=== PATIENT | female | born 1955 | race Caucasian/White ===

== ENCOUNTER 2017-04-14 07:52 | Inpatient (IN) | payer OTHER ==
[~2017-04-14] VITALS: Ht 172.7 cm; Wt 95.2 kg
[~2017-04-14 07:52] MED LIST: CLINDAMYCIN300 M1 PO; HCTZ/LISINOPRIL1 TAB PO; LAC PO; LEVAQUIN750 MG PO; PREDNISONE10 MG PO; PULMICORT0.5 MG/2 M IH; SYNTHROID0.137 MG PO; TES100 PO; XOP1.25 IH; ZOC10 PO
[2017-04-14 09:00] LABS: BASOPHIL % 0.3 % (0-2); PLATELET COUNT 242 x10^3mcL (130-400)
[2017-04-14 09:06] LABS: CALCIUM 8.2 mg/dL (8.5-10.1); CARBON DIOXIDE 23.8 mmol/L (21-32); CHLORIDE SERUM 107 mmol/L (98-107); CREATININE SERUM 0.9 mg/dL (0.6-1.0); GFR1 > 60 mL/min; GLUCOSE SERUM 109 mg/dL (74-106); POTASSIUM SERUM 3.8 mmol/L (3.5-5.1); SODIUM SERUM 141 mmol/L (136-145)
[2017-04-14 09:11] LABS: ALKALINE PHOSPHATASE 105 U/L (46-116); ALT/SGPT 49 U/L (14-59); AST/SGOT 56 U/L (15-37); BILIRUBIN TOTAL 0.34 mg/dL (0.20-1.00); TOTAL PROTEIN, SERUM 6.9 g/dL (6.4-8.2)
[2017-04-14 09:12] LABS: ALBUMIN 3.2 g/dL (3.4-5.0)
[2017-04-14 10:44] LABS: microscopic required? YES; urine erythrocyte TRACE (NEGATIVE)
[2017-04-14] MEDS ORDERED: SYNTHROID0.15 MG PO (10:49)
[2017-04-14] MEDS ORDERED: AVAPRO75 MG PO (10:50)
[2017-04-14 11:20] LABS: MAGNESIUM 1.8 mg/dL (1.8-2.4); PHOSPHOROUS 2.3 mg/dL (2.5-4.9)
[2017-04-14 11:23] LABS: CHOLESTEROL/HDL RATIO 3.5
[2017-04-14 11:28] LABS: FREE T4 0.91 ng/dL (0.76-1.46); FREE THYROXINE INDEX 2.2 ug/dL (1.4-4.5); T4(THYROXINE) 6.8 ug/dL (4.7-13.3)
[2017-04-14 11:29] LABS: T3 TOTAL 0.87 ng/mL
[2017-04-14 11:30] VITALS: BP 107/57
[2017-04-14 12:51] VITALS: BP 107/57
[2017-04-14 13:35] VITALS: BP 107/57
[2017-04-14 14:18] VITALS: BP 104/71
[2017-04-14 17:56] VITALS: BP 117/87
[2017-04-14 21:56] VITALS: BP 110/74
[2017-04-15 05:22] VITALS: BP 133/81
[2017-04-15 06:20] LABS: BASOPHIL % 0.4 % (0-2); PLATELET COUNT 193 x10^3mcL (130-400)
[2017-04-15 06:27] LABS: CALCIUM 7.6 mg/dL (8.5-10.1); CARBON DIOXIDE 25.5 mmol/L (21-32); CHLORIDE SERUM 110 mmol/L (98-107); CREATININE SERUM 0.8 mg/dL (0.6-1.0); GFR1 > 60 mL/min; GLUCOSE SERUM 93 mg/dL (74-106); PHOSPHOROUS 2.8 mg/dL (2.5-4.9); POTASSIUM SERUM 3.9 mmol/L (3.5-5.1); SODIUM SERUM 142 mmol/L (136-145)
[2017-04-15 06:43] LABS: RED CELL DISTRIBUTION WIDTH 16.3 % (11.5-14.5)
[2017-04-15 08:30] VITALS: BP 130/80
[2017-04-15 13:00] VITALS: BP 119/71
[2017-04-15 17:55] VITALS: BP 116/75
[2017-04-15 22:02] VITALS: BP 117/70
[2017-04-16 06:35] LABS: BASOPHIL % 0.4 % (0-2); PLATELET COUNT 210 x10^3mcL (130-400)
[2017-04-16 06:41] LABS: RED CELL DISTRIBUTION WIDTH 16.6 % (11.5-14.5)
[2017-04-16 06:56] LABS: CALCIUM 8.1 mg/dL (8.5-10.1); CARBON DIOXIDE 26.4 mmol/L (21-32); CHLORIDE SERUM 109 mmol/L (98-107); CREATININE SERUM 0.8 mg/dL (0.6-1.0); GFR1 > 60 mL/min; GLUCOSE SERUM 88 mg/dL (74-106); POTASSIUM SERUM 3.9 mmol/L (3.5-5.1); SODIUM SERUM 142 mmol/L (136-145)
[2017-04-16 07:08] VITALS: BP 113/70
[2017-04-16 08:25] VITALS: BP 136/85
[2017-04-16] MEDS ORDERED: BD LACTINEX1.4 MG PO (10:57)
[2017-04-16] MEDS ORDERED: AZITHROMYCIN250 M1 PO (10:57)
[2017-04-16 11:19] VITALS: BP 136/81
[2017-04-16 13:10] VITALS: BP 128/75
== END 2017-04-16 14:00 | disposition home or self-care (01) | DRG 193 ==
LOC: ED 07:52 → DU 10:34
PROVIDERS: Emergency Medicine; ADMIT Family Medicine
DX: J09.X2 Influenza due to identified novel influenza A virus with other respiratory manifestations (principal); J96.01 Acute respiratory failure with hypoxia; E44.1 Mild protein-calorie malnutrition; E44.0 Moderate protein-calorie malnutrition; R73.03 Prediabetes; R31.9 Hematuria, unspecified; R74.0 Nonspecific elevation of levels of transaminase and lactic acid dehydrogenase [LDH]; I10 Essential (primary) hypertension; E83.39 Other disorders of phosphorus metabolism; E03.9 Hypothyroidism, unspecified; E66.9 Obesity, unspecified; Z68.31 Body mass index [BMI] 31.0-31.9, adult
CPT/HCPCS: 36600; 83880; 84439; 87491; 87591; 87804; 94150; J1885; J1956; J2270; J2405; J7030; J7613; J7620; J7644; Q0092